=== PATIENT | male | born 1960 | race Caucasian/White ===

== ENCOUNTER 2017-09-17 19:51 | Inpatient (IN) | payer OTHER ==
[~2017-09-17] VITALS: Ht 170.2 cm; Wt 52.5 kg
[2017-09-17] MEDS ORDERED: SODIUM CHLORIDE FLUSH 10ML SYR IVF ONE (21:00)
[2017-09-17] MEDS ORDERED: PROMETHAZINE 25 MG/ML, 1ML IM ONE (21:00)
[2017-09-17] MEDS ORDERED: SODIUM CHLORIDE 0.9% 1,000ML IVBOLUS ONE (21:00)
[2017-09-17 21:05] LABS: BASOPHILS # (AUTO) 0.03 x10^3/uL (0-0.1); BASOPHILS % (AUTO) 0 % (0-1); EOSINOPHILS # (AUTO) 0.02 x10^3/uL (0-0.4); EOSINOPHILS % (AUTO) 0 % (1-7); LYMPHOCYTES # (AUTO) 0.84 x10^3/uL (1-3.4); LYMPHOCYTES % (AUTO) 7 % (22-44); MD NO; MEAN CORPUSCULAR HEMOGLOBIN 35.1 pg (27.5-34.5); MEAN CORPUSCULAR HGB CONC 35.2 g/dL (33.2-36.2); MEAN CORPUSCULAR VOLUME 99.6 fL (81-97); MEAN PLATELET VOLUME 7.9 fL (7.4-10.4); MONOCYTES # (AUTO) 1.35 x10^3/uL (0.2-0.8); MONOCYTES % (AUTO) 11 % (2-9); NEUTROPHILS % (AUTO) 83 % (42-75); PLATELET COUNT 260 x10^3/uL (130-400); RED BLOOD COUNT 4.29 x10^6/uL (4.38-5.82); RED CELL DISTRIBUTION WIDTH 12.4 % (9.4-14.8)
[2017-09-17 21:08] LABS: ALANINE AMINOTRANSFERASE 17 U/L (12-78); ALBUMIN 3.5 g/dL (3.4-5.0); ANION GAP 12 mmol/L (5-15); CHLORIDE 85 mmol/L (98-107); CREATININE 1.07 mg/dL (0.7-1.3)
[2017-09-17 21:10] LABS: ALKALINE PHOSPHATASE 57 U/L (45-117); BILIRUBIN,TOTAL 1.1 mg/dL (0.2-1.0); TOTAL PROTEIN 7.4 g/dL (6.4-8.2)
[2017-09-17] MEDS ORDERED: MORPHINE SULFATE 4 MG/ML, 1ML ONE ×2 (21:19→22:11)
[2017-09-17] MEDS ORDERED: PROMETHAZINE 25 MG/ML, 1ML ONE (21:19)
[2017-09-17] MEDS: MORPHINE SULFATE 4 MG/ML, 1ML IVPush PRN ×2 (21:24→22:15)
[2017-09-17] MEDS ORDERED: OMNIPAQUE 350 MG/ML, 100ML BOTTLE ONE (21:35)
[2017-09-17] MEDS ORDERED: METOCLOPRAMIDE 5 MG/ML, 2ML IVPush ONE (22:00)
[2017-09-17] MEDS ORDERED: METOCLOPRAMIDE 5 MG/ML, 2ML ONE (22:11)
[2017-09-17 22:17] LABS: MICROSCOPIC NOT IND
[2017-09-17 22:23] LABS: CULTURE INDICATED? NO
[2017-09-17] MEDS ORDERED: ENOXAPARIN 40 MG/0.4 ML SQ SCH (22:30)
[2017-09-17] MEDS ORDERED: SODIUM CHLORIDE 0.9% 1,000 ML IV SCH (22:30)
[2017-09-17] MEDS ORDERED: LABETALOL 5MG/ML, 20ML IVPush PRN (22:30)
[2017-09-17] MEDS ORDERED: ONDANSETRON ODT 4 MG PO PRN (22:30)
[2017-09-17] MEDS ORDERED: morphine SULFATE 10 MG/ML, 1ML IVPush PRN (22:30)
[2017-09-17] MEDS ORDERED: ACETAMINOPHEN 325 MG TABLET PO PRN (22:30)
[2017-09-17] MEDS ORDERED: ENALAPRILAT 1.25 MG/ML, 2ML IVPush PRN (22:30)
[2017-09-17] MEDS ORDERED: NICOTINE 7 MG/24 HR PATCH.TD24 TD SCH (22:30)
[2017-09-17] MEDS ORDERED: ONDANSETRON 2MG/ML, 2ML IVPush PRN (22:30)
[2017-09-17] MEDS ORDERED: MIDAZOLAM 1 MG/ML, 2ML ONE (22:44)
[2017-09-17] MEDS ORDERED: FENTANYL PF 250 MCG/5ML ONE (22:45)
[2017-09-17] MEDS ORDERED: CEFAZOLIN 1,000 MG ONE (23:05)
[2017-09-17] MEDS ORDERED: PROPOFOL 10 MG/ML, 20ML ONE (23:05)
[2017-09-17] MEDS ORDERED: ROCURONIUM 10 MG/ML,10ML ONE (23:05)
[2017-09-17] MEDS ORDERED: SUCCINYLCHOLINE 20 MG/ML, 10ML ONE (23:05)
[2017-09-17 23:30] LABS: FOLATE LEVEL > 20.0 ng/mL (3.1-17.5)
[2017-09-17] MEDS ORDERED: SUGAMMADEX 200 MG/2 ML IVPush ONE (23:44)
[2017-09-18] VITALS (7 sets, daily range): BP systolic 130–154; BP diastolic 79–97
[2017-09-18] MEDS ORDERED: FENTANYL PF 100 MCG/2ML ONE (00:20)
[2017-09-18] MEDS ORDERED: HYDROmorphone 2 MG/ML, 1ML ONE ×2 (00:20→05:44)
[2017-09-18] MEDS ORDERED: LABETALOL 5MG/ML, 20ML ONE (00:20)
[2017-09-18] MEDS: FENTANYL PF 100 MCG/2ML IV PRN ×2 (00:21→00:43)
[2017-09-18] MEDS: LABETALOL 5MG/ML, 20ML IV PRN ×3 (00:25→00:49)
[2017-09-18] MEDS: HYDROmorphone 1 MG/ML, 1ML IV PRN ×2 (00:29→00:34)
[2017-09-18] MEDS ORDERED: METOCLOPRAMIDE 5 MG/ML, 2ML IV PRN (00:30)
[2017-09-18] MEDS ORDERED: ONDANSETRON 2MG/ML, 2ML IVPush PRN (00:30)
[2017-09-18] MEDS ORDERED: MEPERIDINE/PF 25MG/0.5ML IVPush PRN (00:30)
[2017-09-18] MEDS ORDERED: OXYcodone 5 MG/5 ML ORAL.SOL UDC PO PRN (00:30)
[2017-09-18] MEDS ORDERED: hydrALAzine 20 MG/ML, 1ML IV PRN (00:30)
[2017-09-18] MEDS ORDERED: ALBUTEROL SULFATE 2.5 MG/3 ML NPPB PRN (00:30)
[2017-09-18] MEDS ORDERED: KETOROLAC 30 MG/1 ML IV PRN (00:30)
[2017-09-18] MEDS ORDERED: PROMETHAZINE 25 MG/ML, 1ML IV PRN (00:30)
[2017-09-18] MEDS ORDERED: ALBUTEROL SULFATE 2.5 MG/3 ML ONE (01:03)
[2017-09-18] MEDS ORDERED: LORazepam 1MG TABLET PO PRN (02:30)
[2017-09-18] MEDS ORDERED: LORazepam 2 MG/ML, 1ML IV PRN (02:30)
[2017-09-18] MEDS ORDERED: HYDROmorphone 1 MG/ML, 1ML IV PRN (02:30)
[2017-09-18] MEDS ORDERED: ONDANSETRON 2MG/ML, 2ML IV PRN (02:30)
[2017-09-18] MEDS: POTASSIUM CHLORIDE 20 MEQ in D5%-0.45% NACL 1,000 ML IV SCH ×3 (02:34→20:36)
[2017-09-18] MEDS: METRONIDAZOLE PMX 500MG/100ML 100 ML IVPB SCH ×2 (02:35→10:50)
[2017-09-18] MEDS ORDERED: LABETALOL 5MG/ML, 20ML IVPush PRN (03:30)
[2017-09-18] MEDS ORDERED: ENALAPRILAT 1.25 MG/ML, 2ML IV PRN (03:30)
[2017-09-18] MEDS ORDERED: NICOTINE 7 MG/24 HR PATCH.TD24 TD SCH (03:30)
[2017-09-18] MEDS: morphine SULFATE 10 MG/ML, 1ML IV PRN ×3 (05:05→23:21)
[2017-09-18 05:17] LABS: ALBUMIN 2.6 g/dL (3.4-5.0); ANION GAP 8 mmol/L (5-15); CALCIUM 7.9 mg/dL (8.5-10.1); CHLORIDE 94 mmol/L (98-107)
[2017-09-18 05:21] LABS: ALANINE AMINOTRANSFERASE 15 U/L (12-78); ALKALINE PHOSPHATASE 41 U/L (45-117); BILIRUBIN,TOTAL 0.9 mg/dL (0.2-1.0); CREATININE 0.71 mg/dL (0.7-1.3); TOTAL PROTEIN 5.7 g/dL (6.4-8.2)
[2017-09-18 05:42] LABS: MEAN CORPUSCULAR HEMOGLOBIN 35.1 pg (27.5-34.5); MEAN CORPUSCULAR HGB CONC 34.9 g/dL (33.2-36.2); MEAN CORPUSCULAR VOLUME 100.4 fL (81-97); MEAN PLATELET VOLUME 8.3 fL (7.4-10.4); PLATELET COUNT 211 x10^3/uL (130-400); RED CELL DISTRIBUTION WIDTH 12.4 % (9.4-14.8)
[2017-09-18 06:05] LABS: MD YES
[2017-09-18 06:07] LABS: BAND#(MANUAL) 0.74 x10^3/uL; BANDS%(MANUAL) 9 % (0-7)
[2017-09-18 06:09] LABS: LYMPH#(MANUAL) 1.23 x10^3/uL (1-3.4); LYMPHS% (MANUAL) 15 % (22-44); MONOS#(MANUAL) 0.66 x10^3/uL (0.3-2.7); MONOS% (MANUAL) 8 % (2-9); SEG#(MANUAL) 5.58 x10^3/uL (1.8-6.8); SEGS% (MANUAL) 68 % (42-75)
[2017-09-18 06:13] LABS: <PLATELET ESTIMATE> ADEQUATE; <PLT MORPHOLOGY> NORMAL PLT MORPH
[2017-09-18] MEDS: ENOXAPARIN 40 MG/0.4 ML SQ SCH (09:07)
[2017-09-18] MEDS: NICOTINE 14MG/24 HR PATCH.TD24 TD SCH (11:13)
[2017-09-18] MEDS ORDERED: NICOTINE 7 MG/24 HR PATCH.TD24 TD ONE (11:30)
[2017-09-18] MEDS: METOPROLOL TARTRATE 25 MG TABLET PO SCH ×2 (12:13→20:37)
[2017-09-18] MEDS: CEFOTETAN PMX 1GM/50ML 50 ML IVPB SCH ×2 (12:13→23:55)
[2017-09-19 02:27] VITALS: BP 139/80
[2017-09-19 05:01] LABS: BASOPHILS % (AUTO) 0 % (0-1); EOSINOPHILS % (AUTO) 0 % (1-7); LYMPHOCYTES # (AUTO) 0.53 x10^3/uL (1-3.4); LYMPHOCYTES % (AUTO) 5 % (22-44); MD NO; MEAN CORPUSCULAR HEMOGLOBIN 34.8 pg (27.5-34.5); MEAN CORPUSCULAR HGB CONC 34.4 g/dL (33.2-36.2); MEAN CORPUSCULAR VOLUME 101.2 fL (81-97); MEAN PLATELET VOLUME 8.2 fL (7.4-10.4); MONOCYTES # (AUTO) 1.06 x10^3/uL (0.2-0.8); MONOCYTES % (AUTO) 9 % (2-9); NEUTROPHILS % (AUTO) 86 % (42-75); PLATELET COUNT 229 x10^3/uL (130-400); RED BLOOD COUNT 3.95 x10^6/uL (4.38-5.82); RED CELL DISTRIBUTION WIDTH 12.4 % (9.4-14.8)
[2017-09-19 05:09] LABS: ALBUMIN 2.5 g/dL (3.4-5.0); ANION GAP 6 mmol/L (5-15); CALCIUM 8.3 mg/dL (8.5-10.1); CHLORIDE 95 mmol/L (98-107)
[2017-09-19 05:12] LABS: ALANINE AMINOTRANSFERASE 18 U/L (12-78); ALKALINE PHOSPHATASE 45 U/L (45-117); BILIRUBIN,TOTAL 0.7 mg/dL (0.2-1.0)
[2017-09-19] MEDS: POTASSIUM CHLORIDE 20 MEQ in D5%-0.45% NACL 1,000 ML IV SCH ×2 (05:59→17:10)
[2017-09-19 06:45] VITALS: BP 155/102
[2017-09-19] MEDS ORDERED: HYDROcodone/APAP 5/325 TABLET PO PRN (07:00)
[2017-09-19] MEDS ORDERED: BISACODYL 5 MG EC TABLET PO PRN (07:00)
[2017-09-19 08:15] VITALS: BP 145/90
[2017-09-19] MEDS: METOPROLOL TARTRATE 25 MG TABLET PO SCH ×2 (08:29→21:09)
[2017-09-19] MEDS: ENOXAPARIN 40 MG/0.4 ML SQ SCH (08:29)
[2017-09-19] MEDS ORDERED: ALBUTEROL/IPRATROPIUM 2.5MG/0.5MG, 3 ML NPPB PRN (09:30)
[2017-09-19] MEDS ORDERED: CEFTRIAXONE 1,000 MG in SODIUM CHLORIDE 0.9% 50 ML IV SCH (10:30)
[2017-09-19] MEDS ORDERED: AZITHROMYCIN 500 MG in SODIUM CHLORIDE 0.9% 250 ML IV SCH (10:30)
[2017-09-19] MEDS: NICOTINE 14MG/24 HR PATCH.TD24 TD SCH (11:06)
[2017-09-19 13:05] VITALS: BP 117/45
[2017-09-19 20:11] VITALS: BP 104/74
[2017-09-20] MEDS: POTASSIUM CHLORIDE 20 MEQ in D5%-0.45% NACL 1,000 ML IV SCH (00:05)
[2017-09-20 02:12] VITALS: BP 148/97
[2017-09-20 05:07] LABS: BASOPHILS # (AUTO) 0.01 x10^3/uL (0-0.1); BASOPHILS % (AUTO) 0 % (0-1); EOSINOPHILS % (AUTO) 0 % (1-7); LYMPHOCYTES # (AUTO) 0.85 x10^3/uL (1-3.4); LYMPHOCYTES % (AUTO) 6 % (22-44); MD NO; MEAN CORPUSCULAR HEMOGLOBIN 35.6 pg (27.5-34.5); MEAN CORPUSCULAR HGB CONC 35.2 g/dL (33.2-36.2); MEAN CORPUSCULAR VOLUME 101.3 fL (81-97); MEAN PLATELET VOLUME 8.1 fL (7.4-10.4); MONOCYTES % (AUTO) 9 % (2-9); NEUTROPHILS # (AUTO) 12.02 x10^3/uL (1.8-6.8); NEUTROPHILS % (AUTO) 85 % (42-75); PLATELET COUNT 248 x10^3/uL (130-400); RED CELL DISTRIBUTION WIDTH 12.5 % (9.4-14.8)
[2017-09-20 08:01] VITALS: BP 143/96
[2017-09-20] MEDS ORDERED: HYDR-883 PO (08:41)
[2017-09-20] MEDS: METOPROLOL TARTRATE 25 MG TABLET PO SCH (09:21)
[2017-09-20] MEDS: ENOXAPARIN 40 MG/0.4 ML SQ SCH (09:22)
[2017-09-20] MEDS: NICOTINE 14MG/24 HR PATCH.TD24 TD SCH (11:10)
[2017-09-20 13:41] VITALS: BP 141/91
== END 2017-09-20 17:05 | disposition home or self-care (01) | DRG 329 ==
LOC: ED 22:09 → EDIP 22:14 → 4NOR 09-18 01:57 → DCLOUNGE 09-20 16:41
PROVIDERS: ADMIT Internal Medicine; ATTEND Internal Medicine
PROC: 0DBB0ZZ Excision of Ileum, Open Approach (ICD-10-PCS; 2017-09-17)
PROC: 0DBK0ZZ Excision of Ascending Colon, Open Approach (ICD-10-PCS; 2017-09-17)
PROC: 0DTH0ZZ Resection of Cecum, Open Approach (ICD-10-PCS; principal; 2017-09-17 23:00)
DX: K56.2 Volvulus (principal); E43 Unspecified severe protein-calorie malnutrition; J96.91 Respiratory failure, unspecified with hypoxia; E87.1 Hypo-osmolality and hyponatremia; Z68.1 Body mass index [BMI] 19.9 or less, adult; J98.11 Atelectasis; R17 Unspecified jaundice; D53.9 Nutritional anemia, unspecified; D72.829 Elevated white blood cell count, unspecified; F10.20 Alcohol dependence, uncomplicated; F17.210 Nicotine dependence, cigarettes, uncomplicated; I10 Essential (primary) hypertension; J44.9 Chronic obstructive pulmonary disease, unspecified; K40.90 Unilateral inguinal hernia, without obstruction or gangrene, not specified as recurrent; K66.0 Peritoneal adhesions (postprocedural) (postinfection); Z82.49 Family history of ischemic heart disease and other diseases of the circulatory system; Z71.41 Alcohol abuse counseling and surveillance of alcoholic
CPT/HCPCS: 36415; 71045; 74177; 80053; 81003; 82607; 82746; 83605; 83690; 83735; 84100; 85025; 88307; 94640; 96372; 99285; J0456; J0690; J0696; J1170; J1650; J2250; J2550; J2704; J3010; J3480; J7613; Q9967; J0330; J2270; J2765; J7030; J7050; S0074

== ENCOUNTER 2017-11-10 10:44 | Inpatient (IN) | payer OTHER ==
[~2017-11-10] VITALS: Ht 167.6 cm; Wt 43.6 kg
[~2017-11-10 10:44] MED LIST: HYDR-883 PO
[2017-11-10] MEDS ORDERED: MAALOX/HYOSCYAMINE/LIDOCAINE 45 ML BTL PO ONE (13:30)
[2017-11-10 13:36] LABS: ALANINE AMINOTRANSFERASE 20 U/L (12-78); ALBUMIN 3.3 g/dL (3.4-5.0); ANION GAP 5 mmol/L (5-15); CALCIUM 8.7 mg/dL (8.5-10.1); CHLORIDE 107 mmol/L (98-107); CREATININE 0.71 mg/dL (0.7-1.3)
[2017-11-10 13:38] LABS: ALKALINE PHOSPHATASE 75 U/L (45-117); BILIRUBIN,TOTAL 0.4 mg/dL (0.2-1.0); TOTAL PROTEIN 7.2 g/dL (6.4-8.2)
[2017-11-10] MEDS ORDERED: MAALOX/HYOSCYAMINE/LIDOCAINE 45 ML BTL ONE (13:40)
[2017-11-10 13:47] LABS: BASOPHILS # (AUTO) 0.07 x10^3/uL (0-0.1); BASOPHILS % (AUTO) 1 % (0-1); EOSINOPHILS # (AUTO) 0.06 x10^3/uL (0-0.4); EOSINOPHILS % (AUTO) 1 % (1-7); LYMPHOCYTES # (AUTO) 1.72 x10^3/uL (1-3.4); LYMPHOCYTES % (AUTO) 21 % (22-44); MD NO; MEAN CORPUSCULAR HEMOGLOBIN 32.7 pg (27.5-34.5); MEAN CORPUSCULAR HGB CONC 33.8 g/dL (33.2-36.2); MEAN CORPUSCULAR VOLUME 96.8 fL (81-97); MEAN PLATELET VOLUME 7.8 fL (7.4-10.4); MONOCYTES # (AUTO) 0.52 x10^3/uL (0.2-0.8); MONOCYTES % (AUTO) 6 % (2-9); NEUTROPHILS # (AUTO) 5.85 x10^3/uL (1.8-6.8); NEUTROPHILS % (AUTO) 71 % (42-75); PLATELET COUNT 254 x10^3/uL (130-400); RED BLOOD COUNT 4.25 x10^6/uL (4.38-5.82); RED CELL DISTRIBUTION WIDTH 13.7 % (9.4-14.8)
[2017-11-10] MEDS ORDERED: OMNIPAQUE 350 MG/ML, 150 ML BOTTLE ONE (14:17)
[2017-11-10] MEDS ORDERED: DOCUSATE 100 MG CAPSULE PO PRN (15:30)
[2017-11-10] MEDS ORDERED: LABETALOL 5MG/ML, 20ML IVPush PRN (15:30)
[2017-11-10] MEDS ORDERED: hydrALAzine 20 MG/ML, 1ML IVPush PRN (15:30)
[2017-11-10] MEDS ORDERED: BISACODYL 10 MG SUPP PR PRN (15:30)
[2017-11-10] MEDS ORDERED: KETOROLAC 30 MG/1 ML IV PRN (15:30)
[2017-11-10] MEDS ORDERED: ENALAPRILAT 1.25 MG/ML, 2ML IVPush PRN (15:30)
[2017-11-10] MEDS ORDERED: ONDANSETRON 2MG/ML, 2ML IVPush PRN (15:30)
[2017-11-10] MEDS ORDERED: ONDANSETRON ODT 4 MG PO PRN (15:30)
[2017-11-10] MEDS ORDERED: ACETAMINOPHEN 325 MG TABLET PO PRN (15:30)
[2017-11-10] MEDS ORDERED: POLYETHYLENE GLYCOL 17 GM PACKET PO PRN (15:30)
[2017-11-10] MEDS ORDERED: MAALOX/HYOSCYAMINE/LIDOCAINE 45 ML BTL PO PRN (16:00)
[2017-11-10 16:17] VITALS: BP 133/79
[2017-11-10] MEDS: SODIUM CHLORIDE 0.9% 1,000 ML IV SCH (16:42)
[2017-11-10] MEDS: NICOTINE 14MG/24 HR PATCH.TD24 TD SCH (16:42)
[2017-11-10 20:00] VITALS: BP 107/68
[2017-11-11 01:36] VITALS: BP 134/83
[2017-11-11] MEDS: SODIUM CHLORIDE 0.9% 1,000 ML IV SCH ×2 (04:50→23:12)
[2017-11-11 07:05] VITALS: BP 154/92
[2017-11-11] MEDS ORDERED: MIDAZOLAM 1 MG/ML, 5ML ONE ×2 (09:48→11:00)
[2017-11-11] MEDS ORDERED: FENTANYL PF 100 MCG/2ML ONE ×2 (09:48→11:00)
[2017-11-11 14:44] VITALS: BP 132/82
[2017-11-11] MEDS: NICOTINE 14MG/24 HR PATCH.TD24 TD SCH (15:36)
[2017-11-11] MEDS ORDERED: NICOTINE 21 MG/24 HR PATCH.TD24 TD SCH (18:00)
[2017-11-11 19:35] VITALS: BP 163/85
[2017-11-12 03:58] VITALS: BP 149/87
[2017-11-12 08:59] VITALS: BP 134/82
== END 2017-11-12 12:46 | disposition home or self-care (01) | DRG 392 ==
LOC: ED 12:51 → EDIP 14:45 → 4NOR 15:53
PROVIDERS: ADMIT Internal Medicine; ATTEND Internal Medicine
PROC: 0D758ZZ Dilation of Esophagus, Via Natural or Artificial Opening Endoscopic (ICD-10-PCS; principal; 2017-11-11 12:00)
DX: K22.2 Esophageal obstruction (principal); E44.1 Mild protein-calorie malnutrition; Z68.1 Body mass index [BMI] 19.9 or less, adult; F12.90 Cannabis use, unspecified, uncomplicated; F17.200 Nicotine dependence, unspecified, uncomplicated; F41.9 Anxiety disorder, unspecified; I10 Essential (primary) hypertension; J44.9 Chronic obstructive pulmonary disease, unspecified; R13.14 Dysphagia, pharyngoesophageal phase; Z80.0 Family history of malignant neoplasm of digestive organs
CPT/HCPCS: 36415; 71045; 74220; 80053; 83690; 85025; 99152; 99153; 99285; G0378; J2250; J3010; Q9967; C1725; J7030